=== PATIENT | female | born 1975 | race Caucasian/White ===

== ENCOUNTER → 2016-03-22 | Outpatient (CLI) | payer BC ==
--- NOTE | 2016-03-22 15:50 | US ---
EXAMINATION TYPE: US abdomen limited DATE OF EXAM: 03/22/2016 2:18 PM COMPARISON: NONE CLINICAL HISTORY: K81.0 Acute cholecystitis. epigastric pain after eating, diarrhea and nausea EXAM MEASUREMENTS: Liver Length: 12.3 cm Gallbladder Wall: 0.4 cm CBD: 0.3 cm Right Kidney: 9.9 x 4.4 x 5.1 cm Findings: Pancreas: visualized portions wnl Liver: wnl Gallbladder: thickened wall, large stones with shadowing Evidence for sonographic Roca's sign: no CBD: wnl Right Kidney: No hydronephrosis or masses seen IMPRESSION: I cannot exclude acute cholecystitis. Correlate clinically.
== END | disposition home or self-care (01) ==
LOC: RADUSWWP 13:57
PROVIDERS: ATTEND Family Medicine
DX: K81.0 Acute cholecystitis (principal)
CPT/HCPCS: 76705; 80053; 82150; 83690; 85025